=== PATIENT | female | born 1995 | race Two or more races ===

== ENCOUNTER 2017-09-27 20:51 | Emergency (ER) | payer OTHER ==
[2017-09-27 21:51] LABS: ABSOLUTE BASOPHILS # (AUTO) 0.1 10^3/uL (0.0-0.2); ABSOLUTE EOSINOPHILS # (AUTO) 0.1 10^3/uL (0.0-0.6); ABSOLUTE MONOCYTES (AUTO) 0.7 10^3/uL (0.1-1.4); BASOPHILS % (AUTO) 0.5 % (0-2); EOSINOPHILS % (AUTO) 1.2 % (0-6); HEMOGLOBIN 13.5 g/dL (12.0-15.5); LYMPHOCYTES % (AUTO) 27.4 % (13-45); MEAN CORPUSCULAR HEMOGLOBIN 30.8 pg (27.0-33.4); MEAN CORPUSCULAR HGB CONC 33.8 g/dL (32.0-36.0); MEAN CORPUSCULAR VOLUME 91 fl (80-97); MONOCYTES % (AUTO) 6.3 % (3-13); PLATELET COUNT 278 10^3/uL (150-450); RED BLOOD COUNT 4.38 10^6/uL (3.72-5.28); RED CELL DISTRIBUTION WIDTH 14.2 % (11.5-14.0); SEGMENTED NEUTROPHILS % (AUTO) 64.6 % (42-78); TOTAL CELLS COUNTED % (AUTO) 100 %; WHITE BLOOD COUNT 10.8 10^3/uL (4.0-10.5)
--- NOTE | 2017-09-27 22:51 | RADIOLOGY REPORT (SQ) ---
EXAM DESCRIPTION: U/S OB TRANSVAGINAL W/O DOP COMPLETED DATE/TIME: 09/27/2017 10:29 pm REASON FOR STUDY: vag bleeding, preg COMPARISON: None. TECHNIQUE: Transvaginal static and realtime grayscale images acquired of the pelvis. Additional anabel cted spectral and color Doppler images recorded. All images stored on PACs. bHC,900 LIMITATIONS: None. FINDINGS: 5.2 mm gestational sac in the upper endometrium. No yolk sac identified at this time. EGA: 5 weeks 2 days UTERUS: 2 uterine fibroids, 2.0 and 1.8 cm. CERVICAL LENGTH: 4.2 cm Closed. RIGHT ADNEXA: Normal ovary with normal vascular flow. No adnexal free fluid. No adnexal masses. LEFT ADNEXA: Normal ovary with normal vascular flow. No adnexal free fluid. No adnexal masses. FREE FLUID: None. OTHER: No other significant finding. IMPRESSION: 5.2 mm gestational sac in the upper endometrium. No yolk sac identified at this time.EGA : 5 weeks 2 days Trimester of : First - 0 to 13 weeks. TECHNICAL DOCUMENTATION: JOB ID: [id number] [place]-72 2010 [employer]- All Rights Reserved
--- NOTE | 2017-09-27 23:16 | ER Document Report ---
ED General - General Chief Complaint: Vag Bleeding, +preg <12wks Stated Complaint: VAGINAL BLEEDING,ABDOMINAL PAIN Time Seen by Provider: 09/27/17 21:29 Notes: Patient is a 22-year-old female LMP approximately 5 weeks ago who presents with 2 days of lower abdominal cramping and vaginal bleeding. She describes the lower abdominal pain as a cramping, intermittent, moderately intense pain. Nothing improves or worsens that pain. She denies a history of similar pain during her prior . She also notes that she has had heavy vaginal bleeding relatively consistent with her typical menstrual cycle including passage of clots. She has not seen her primary [employer] regarding today 's concerns. She denies any fever, vomiting, diarrhea or constitutional symptoms. No abdominal trauma. TRAVEL OUTSIDE OF THE [place] IN LAST 30 DAYS: No - Related Data Allergies/Adverse Reactions: No Known Allergies Allergy (Verified 12/28/15 16:09) Past Medical History - General Information source: Patient Last Menstrual Period: 07/22/17 - Social History Smoking Status: Never Smoker Chew tobacco use (# tins/day): No Frequency of alcohol use: None Drug Abuse: None Lives with: Spouse/Significant other Family History: Reviewed & Not Pertinent Patient has suicidal ideation: No Patient has homicidal ideation: No Renal/ Medical History: Denies: Hx Peritoneal Dialysis - Immunizations Immunizations up to date: Yes Hx Diphtheria, Pertussis, Tetanus Vaccination: Yes Review of Systems - Review of Systems Notes: Constitutional: Negative for fever. HENT: Negative for sore throat. Eyes: Negative for visual changes. Cardiovascular: Negative for chest pain. Respiratory: Negative for shortness of breath. Gastrointestinal: Positive for lower abdominal cramping. Genitourinary: Positive for vaginal bleeding Musculoskeletal: Negative for back pain. Skin: Negative for rash. Neurological: Negative for headaches, weakness or numbness. 10 point ROS negative except as marked above and in HPI. Physical Exam - Vital signs Vitals: Temp Pulse Resp BP Pulse Ox 98.1 F 72 20 130/64 H 97 09/27/17 20:56 09/27/17 20:56 09/27/17 20:56 09/27/17 20:56 09/27/17 20:56 Interpretation: Normal Notes: PHYSICAL EXAMINATION: GENERAL: Well-appearing, well-nourished and in no acute distress. HEAD: Atraumatic, normocephalic. EYES: Pupils equal round and reactive to light, extraocular movements intact, sclera anicteric, conjunctiva are normal. ENT: nares patent, oropharynx clear without exudates. Moist mucous membranes. NECK: Normal range of motion, supple without lymphadenopathy LUNGS: Breath sounds clear to auscultation bilaterally and equal. No wheezes rales or rhonchi. HEART: Regular rate and rhythm without murmurs ABDOMEN: Soft, nontender, normoactive bowel sounds. No guarding, no rebound. No masses appreciated. EXTREMITIES: Normal range of motion, no pitting or edema. No cyanosis. NEUROLOGICAL: No focal neurological deficits. Moves all extremities spontaneously and on command. PSYCH: Normal mood, normal affect. SKIN: Warm, Dry, normal turgor, no rashes or lesions noted. Course - Re-evaluation Re-evalutation: 09/27/17 23:14 Patient presents with a mild amount of vaginal bleeding in the setting of an early first trimester . HDL level is high enough that we should be seeing a formed at this time but unfortunately no yolk sac is identified. Patient's level bleeding also is very concerning for a likely ongoing . She is Rh positive. Patient's abdominal exam is otherwise benign without any focal tenderness. I do not suspect an acute appendicitis, pyelonephritis, cystitis, or bowel obstruction. Patient has a follow-up with her [employer] tomorrow and I have instructed her to have a recheck of her hCG level which has been provided to her today. At this time will discharge with return precautions and follow-up recommendations. Verbal discharge instructions given a the bedside and opportunity for questions given. Medication warnings reviewed. Patient is in agreement with this plan and has verbalized understanding of return precautions and the need for primary care follow-up in the next 24-72 hours. - Vital Signs Vital signs: Temp Pulse Resp BP Pulse Ox 98.6 F 67 16 114/68 99 09/27/17 23:39 09/27/17 23:39 09/27/17 23:39 09/27/17 23:39 09/27/17 23:39 - Laboratory Result Diagrams: 09/27/17 21:40 Laboratory results interpreted by me: 09/27/17 09/27/17 21:40 21:40 WBC 10.8 H RDW 14.2 H Beta HCG, Quant 8424.70 H - Diagnostic Test Radiology reviewed: Reports reviewed Discharge - Discharge Clinical Impression: Vaginal bleeding during , antepartum, Abnormal in first trimester Condition: Stable Disposition: HOME, SELF-CARE Additional Instructions: Please follow-up with her [employer] tomorrow as scheduled. Unfortunately your ultrasound and history are worrisome for a miscarriage. Please return if you develop severe abdominal pain, bleeding that goes through more than 2 pads for more than 2 hours, pass out, or have any other symptoms that are concerning to you. Forms: Return to Work
[2017-09-27 23:42] VITALS: BP 114/68
== END 2017-09-27 23:42 | disposition home or self-care (01) ==
LOC: ER 20:51
DX: O26.891 Other specified pregnancy related conditions, first trimester (principal); O20.9 Hemorrhage in early pregnancy, unspecified; Z3A.01 Less than 8 weeks gestation of pregnancy
CPT/HCPCS: 36415; 76817; 84702; 85025; 86900; 86901; 99284

== ENCOUNTER 2018-05-06 21:26 | Emergency (ER) | payer OTHER ==
--- NOTE | 2018-05-06 22:40 | RADIOLOGY REPORT (SQ) ---
EXAM DESCRIPTION: XR FOOT 3 OR MORE VIEWS COMPLETED DATE/TME: 05/06/2018 21:42 CLINICAL HISTORY: 23 years, Female, laceration COMPARISON: None. NUMBER OF VIEWS: Three TECHNIQUE: AP, oblique and lateral LIMITATIONS: None. FINDINGS: External bandage overlies the mid-forefoot may limit evaluation of the soft tissues and fine anatomic detail. A linear hyperdensity measuring 1.2 cm projects in the soft tissues medial to the mid-first metatarsal and is only seen one view. No fracture or dislocation identified. IMPRESSION: 1. Linear hyperdensity (1.2 cm) projecting in the medial soft tissues as above, could represent a foreign body or located outside body contours. Please correlate with visual inspection. 2. No acute osseous finding of the left foot. 2011 [email or web address]- All Rights Reserved
[2018-05-06] MEDS ORDERED: DIPH/PERTUSS(ACELL)/TETANUS VAC/PF 0.5 ML SYR (>=10YO) IM ONE (23:15)
--- NOTE | 2018-05-06 23:16 | ER Document Report ---
ED Medical Screen (RME) - General Chief Complaint: Laceration Stated Complaint: FOOT LACERATION Time Seen by Provider: 05/06/18 23:15 Notes: 23-year-old female chief complaint of laceration to the left foot over the medial side, states there was broken glass from a picture frame on the floor and it caught her on the side of her foot causing a laceration and heavy bleeding. Uncertain of foreign body. Not up-to-date on tetanus. No other injuries or complaints. TRAVEL OUTSIDE OF THE [place] IN LAST 30 DAYS: No - Related Data Allergies/Adverse Reactions: No Known Allergies Allergy (Verified 12/28/15 16:09) Past Medical History - Social History Chew tobacco use (# tins/day): No Frequency of alcohol use: None Drug Abuse: None Renal/ Medical History: Denies: Hx Peritoneal Dialysis - Immunizations Immunizations up to date: Yes Hx Diphtheria, Pertussis, Tetanus Vaccination: Yes Physical Exam - Vital signs Vitals: Temp Pulse Resp BP Pulse Ox 97.9 F 81 20 113/62 98 05/06/18 21:36 05/06/18 21:36 05/06/18 21:36 05/06/18 21:36 05/06/18 21:36 - Extremities General lower extremity: Other - Linear approximately 3 cm laceration over the medial aspect of the left foot, full-thickness, no obvious foreign bodies. Normal distal neurovascular exam. Course - Vital Signs Vital signs: Temp Pulse Resp BP Pulse Ox 97.9 F 81 20 113/62 98 05/06/18 21:36 05/06/18 21:36 05/06/18 21:36 05/06/18 21:36 05/06/18 21:36
[2018-05-07] MEDS ORDERED: LIDOCAINE 1% INJ-PF (10 MG/ML) 30 ML SDV INJ ONE (01:36)
--- NOTE | 2018-05-07 01:40 | ER Document Report ---
ED Wound - General Chief Complaint: Laceration Stated Complaint: FOOT LACERATION Time Seen by Provider: 05/06/18 23:15 Notes: Patient is a 23-year-old female presenting to the emergency department with a laceration to her left foot. She states she was taking out the trash and the bag hit her left medial foot. States she is unsure, but thinks there was glass in the bag which is what cut her. Pt. has no medical problems, NKDA, states she is not UTD on tetanus. TRAVEL OUTSIDE OF THE [place] IN LAST 30 DAYS: No - Related Data Allergies/Adverse Reactions: No Known Allergies Allergy (Verified 12/28/15 16:09) Past Medical History - Social History Smoking Status: Never Smoker Chew tobacco use (# tins/day): No Frequency of alcohol use: None Drug Abuse: None Family History: Reviewed & Not Pertinent Patient has suicidal ideation: No Patient has homicidal ideation: No Renal/ Medical History: Denies: Hx Peritoneal Dialysis - Immunizations Immunizations up to date: Yes Hx Diphtheria, Pertussis, Tetanus Vaccination: Yes Physical Exam - Vital signs Vitals: Temp Pulse Resp BP Pulse Ox 97.9 F 81 20 113/62 98 05/06/18 21:36 05/06/18 21:36 05/06/18 21:36 05/06/18 21:36 05/06/18 21:36 Course - Re-evaluation Re-evalutation: Laceration explored and flushed with copious amounts of fluid. No obvious foreign body seen. Will cover patient with oral antibiotics. Return precautions given. - Vital Signs Vital signs: Temp Pulse Resp BP Pulse Ox 97.9 F 81 20 113/62 98 05/06/18 21:36 05/06/18 21:36 05/06/18 21:36 05/06/18 21:36 05/06/18 21:36 Procedures - Laceration/Wound Repair Left Foot Wound length (cm): 2 Wound's Depth, Shape: Superficial Laceration pre-procedure: Sterile PPE donned, Sterile drapes applied, Shur- Clens applied Anesthetic type: 1% Lidocaine w/epi Volume Anesthetic (mLs): 5 Wound explored: Clean, No foreign body removed Irrigated w/ Saline (mLs): 500 Wound Debrided: Minimal Wound Repaired With: Sutures Suture Size/Type: 4:0, Ethilon Number of Sutures: 6 Post-procedure wound care: Sterile dressing applied Post-procedure NV exam normal: Yes Complications: No - unknown if FB still retained, will treat with ABX Discharge - Discharge Clinical Impression: Laceration Condition: Stable Disposition: HOME, SELF-CARE Instructions: Laceration Care ([facility]), Tetanus Immunization Given ([facility]) Additional Instructions: Do not get her foot wet for the next 24 hours. After that he may shower as normal but do not submerge the injury. Take antibiotics as prescribed. Should he develop any redness around the site or discharge return to the emergency department. Should he develop a fever also return to the emergency department. Your sutures are to come out in 12-14 days Prescriptions: Cephalexin Monohydrate [Keflex 500 mg Capsule] 500 mg PO TID #15 capsule
[2018-05-07] MEDS ORDERED: LIDOCAINE 1%/EPINEPHRINE INJ 20 ML VIAL INJ ONE (01:43)
[2018-05-07] MEDS ORDERED: CEPHALEXIN 500 MG CAPSULE PO ONE (03:25)
[2018-05-07] MEDS ORDERED: DIPH/PERTUSS(ACELL)/TETANUS VAC/PF 0.5 ML SYR (>=10YO) IM ONE (03:47)
[2018-05-07 07:57] VITALS: BP 106/53
== END 2018-05-07 04:00 | disposition home or self-care (01) ==
LOC: ER 21:26
PROC: 0JJW0ZZ Inspection of Lower Extremity Subcutaneous Tissue and Fascia, Open Approach (ICD-10-PCS; principal; 2018-05-06)
PROC: 3E0234Z Introduction of Serum, Toxoid and Vaccine into Muscle, Percutaneous Approach (ICD-10-PCS; 2018-05-06)
DX: S91.312A Laceration without foreign body, left foot, initial encounter (principal); W25.XXXA Contact with sharp glass, initial encounter; Y93.89 Activity, other specified; Z23 Encounter for immunization
CPT/HCPCS: 99283; 90471; 73630; 90715; 20103; J3490 ×2